=== PATIENT | male | born 1970 | race African-American/Black ===

== ENCOUNTER 2023-07-24 14:52 | Emergency (ER) | payer SELFPAY ==
[2023-07-24 15:19] LABS: BASOPHILS ABSOLUTE AUTO 0.01 K/uL (0.00-0.20); BASOPHILS PERCENT AUTO 0.2 % (0.0-1.0); EOSINOPHILS ABSOLUTE AUTO 0.06 K/uL (0.00-0.45); EOSINOPHILS PERCENT AUTO 1.5 % (0.0-6.0); HEMATOCRIT 44.4 % (42.0-52.0); HEMOGLOBIN 14.7 g/dL (14.0-18.0); IMMATURE GRAN ABSOLUTE AUTO 0.01 K/uL (0.00-0.05); IMMATURE GRAN PERCENT AUTO 0.2 % (0.0-0.4); LYMPHOCYTES ABSOLUTE AUTO 1.85 K/uL (1.00-4.80); LYMPHOCYTES PERCENT AUTO 45.5 % (24.0-44.0); MEAN CORPUSCULAR HEMOGLOBIN 29.3 pg (28.0-32.0); MEAN CORPUSCULAR HGB CONC 33.1 g/dL (32.0-36.0); MEAN CORPUSCULAR VOLUME 88.6 fL (83.0-99.0); MEAN PLATELET VOLUME 10.9 fL (9.4-12.4); MONOCYTES ABSOLUTE AUTO 0.35 K/uL (0.00-0.80); MONOCYTES PERCENT AUTO 8.6 % (0.0-8.0); NEUTROPHILS ABSOLUTE AUTO 1.79 K/uL (1.80-7.70); PLATELET COUNT,PLT 139 K/uL (150-400); RED BLOOD CELL COUNT 5.01 M/uL (4.52-5.90); WHITE BLOOD CELL COUNT,WBC 4.07 K/uL (3.9-11.3)
[2023-07-24] MEDS: Labetalol 100 MG/20 ML MDV IVPUSH ONE (15:24)
[2023-07-24] MEDS: Acetaminophen 500 MG Tab PO ONE (15:24)
[2023-07-24] MEDS ORDERED: Metoprolol Succinate 100 MG Tab.ER PO ONE (15:36)
[2023-07-24 15:41] LABS: ALBUMIN 3.9 g/dL (3.4-5.0); BILIRUBIN TOTAL 0.7 mg/dL (0.2-1.0); CARBON DIOXIDE,CO2 28.2 mmol/L (21.0-32.0); CREATININE 1.2 mg/dL (0.8-1.3); EST CRCL DRUG DOSING (CG) 79.04 mL/min; POTASSIUM,K 3.6 mmol/L (3.5-5.1); PROTEIN TOTAL,TP 7.8 g/dL (6.4-8.2)
[2023-07-24] MEDS: amLODIPine 5 MG Tab PO ONE (15:53)
[2023-07-24] MEDS: Metoprolol Succinate 50 MG Tab.ER PO ONE (16:07)
[2023-07-24] MEDS ORDERED: Metoprolol Succinate 50 MG Tab.ER ONE (16:09)
[2023-07-24] MEDS: Lisinopril/Hydrochlorothiazide 10-12.5 MG Tab PO ONE (16:10)
== END 2023-07-24 17:18 | disposition home or self-care (01) ==
LOC: MW.ED 14:52
DX: I10 Essential (primary) hypertension (principal); Z75.8 Other problems related to medical facilities and other health care; Z79.899 Other long term (current) drug therapy
CPT/HCPCS: 36415; 70450; 80053; 85025; 96374; 99284; A9270; J1921; 93005; 93010